=== PATIENT | female | born 1995 | race Caucasian/White ===

== ENCOUNTER 2019-01-14 21:04 | Inpatient (IN) | payer SELFPAY ==
[~2019-01-14] VITALS: Ht 157.5 cm; Wt 84.4 kg
[2019-01-14 22:25] VITALS: BP 118/71
--- NOTE | 2019-01-14 22:25 | NUR ---
The patient, BRUNO CHAPARRO, 23 y/o, F admitted by BRYAN ADRIAN MD, was given written information regarding hospital policies, unit procedures and contact persons. RN received report from Ema PARSONS at [place] @ 2117 and patient arrived on the floor at 2225. RN performed a head to toe assessment at that time, VSS, afebrile, and rating pain a 0/10. Bed is in lowest locked position, call light within reach, and patient was oriented to the room. Orders were received and implemented at that time. Valuables were checked and left in the room with patient. RN will continue to monitor patient closely.
[2019-01-14] MEDS ORDERED: ONDANSETRON PF 4 MG/2 ML VIAL. IV PRN (23:30)
[2019-01-15] VITALS (13 sets, daily range): BP systolic 91–117; BP diastolic 51–69
[2019-01-15] MEDS: IV NORMAL SALINE 1000ML BAG 1,000 ML IV SCH ×3 (00:21→18:19)
--- NOTE | 2019-01-15 08:19 | PDOC2 ---
GARRICK BROWN COMMISSIONER [employer] 01/15/19 0819: CONSULT Date of Consult Date of Consult DATE: 01/15/19 TIME: 08:10 Reason for Consult Reason for Consult: cholecystitis Referring Physician Referring Physician: Ajay ER Identification/Chief Complaint Chief Complaint abdominal pain Source Source: Chart review, Patient History of Present Illness Reason for Visit: 3 weeks of ongoing epigastric pain, sometimes pain radiates to back. Reports treated for UTI and GERD. Pain does seem to worsen after some meals. Nausea and emesis yesterday. She does report a few drinks on Monday. Occasional diarrhea Past Medical History Past Medical History Denies any medical hx Past Surgical History Past Surgical History: No pertinent history Family History Family History: Cancer (pancreatic ), Diabetes Social History No ALCOHOL: other (drinks moderately on weekends, socially) Current Medications Current Medications Current Medications Ondansetron HCl (Zofran) 4 mg PRN Q4HRS PRN IV NAUSEA/VOMITING 1ST CHOICE; Start 01/14/19 at 23:30 Sodium Chloride 1,000 ml @ 100 mls/hr Q10H IV Last administered on 01/15/19at 00:21; Start 01/14/19 at 23:30 Fentanyl Citrate (Fentanyl 2ml Vial) 50 mcg PRN Q3HRS PRN IV SEVERE PAIN 7-10; Start 01/14/19 at 23:30 Ceftriaxone Sodium (Rocephin) 1 gm Q24H IVP ; Start 01/15/19 at 18:00 Allergies Allergies: Coded Allergies: No Known Drug Allergies (Unverified , 01/14/19) ROS General: No: Chills, Other (fevers ) PSYCHOLOGICAL ROS: No: Anxiety, Depression Eyes: No Blurry vision, No Double vision HEENT: No: Heacaches, Sore Throat Hematological and Lymphatic: No: Bleeding Problems, Blood Clots Respiratory: No: Cough, Shortness of breath Cardiovascular: No Chest Pain, No Palpitations Gastrointestinal: Yes Other (see hpi) Genitourinary: No Dysuria, No Retention Musculoskeletal: No Joint Pain, No Muscle Pain Neurological: No Numbness/Tingling Skin: No Pruritus, No Rash Physical Exam General: Alert, Oriented X3, Cooperative, No acute distress HEENT: PERRLA, Mucous membr. moist/pink Lungs: Clear to auscultation, Normal air movement Heart: Regular rate, Normal S1, Normal S2, No murmurs Abdomen: Soft, No tenderness, Other (ND) Extremities: No clubbing, No cyanosis Skin: No rashes, No breakdown Neuro: Normal gait, Normal speech Psych/Mental Status: Mental status NL, Mood NL MUSCULOSKELETAL: No deformity, No swelling Vitals VITALS Vital Signs Date Time Temp Pulse Resp B/P (MAP) Pulse Ox O2 Delivery O2 Flow Rate FiO2 01/15/19 07:27 Room Air 01/15/19 03:00 98.4 63 18 99/53 (68) [address] IMPRESSION: 1. No evidence of periappendiceal inflammatory changes to suggest appendicitis. 2. Stones and sludge within the gallbladder. There is also some mild dilatation of the common bile duct. Would correlate with symptoms in the region and given the mild common bile duct dilation if further clarification is desired ultrasound and/or MRCP could BE obtained to ensure that there is not a biliary ductal stone. 3. Degenerative changes the spine with disc protrusion at L4-5 and L5-S1. 4. Lymphadenopathy at the right side of the abdomen. Commonly reactive in a patient of this age unless they have a history of neoplasm. If history or risk factors for neoplasm follow-up could be obtained to ensure that this does not increase in severity. Assessment/Plan Assessment/Plan abdominal pain, cholelithiasis elevated LFTS, t bili normal ongoing pain x 3 weeks will review with JUANA Stroud MD 01/15/19 1246: CONSULT Assessment/Plan Assessment/Plan Pt seen and examined by myself; 23 year old female reported to [facility] ER with upper abdominal pain radiating around the right to the back. She reports nausea, and has had pain for last few weeks. Evaluation suggested cholecystitis, and she was transferred to [facility]. PMH/PSH/ROS/SH as above; exam: alert, oriented, NAD, no neck masses, lungs clear, heart RR and R, abdomen soft, nontender, ext neg for edema; labs and xrays reviewed. A/P) RUQ pain, gallstones; recommend lap tamra. The details and risks were discussed with the patient. She understands and would like to proceed. GARRICK BROWN APRN Jan 15, 2019 08:19 JUANA BATES MD Jan 15, 2019 12:46
[2019-01-15] MEDS ORDERED: IV RINGERS,LACTATED 1000ML 1,000 ML IV SCH (09:06)
[2019-01-15] MEDS ORDERED: HYDROmorphone 2 MG/ML VIAL IV PRN (09:15)
[2019-01-15] MEDS ORDERED: PROCHLORPERAZINE 10 MG/2 ML VIAL. IV PRN (09:15)
[2019-01-15] MEDS ORDERED: fentaNYL PF VIAL 100 MCG/2 ML VIAL IV PRN ×2 (09:15)
[2019-01-15] MEDS ORDERED: MORPHINE SULFATE 2 MG/ML VIAL. IV PRN (09:15)
[2019-01-15] MEDS ORDERED: ONDANSETRON PF 4 MG/2 ML VIAL. IV PRN (09:15)
--- NOTE | 2019-01-15 10:08 | HP ---
ADMIT DATE: HISTORY OF PRESENT ILLNESS: The patient is a 23-year-old female patient who presented to the Emergency Room of [facility] with complaints of epigastric right upper quadrant abdominal pain and that the pain does occur after eating. She denied any trauma. Denied any intake of bad food. Denied any recent travel, placed on immunosuppression. She [facility]; however, the pain got really worse after eating some chicken rice and therefore she presented to the Emergency Room of [facility] where she was extensively evaluated and was found to have elevated liver enzymes as well as hyperbilirubinemia. Her CT scan of the abdomen and pelvis showed that the patient has stones and sludge within the gallbladder. There is also some mild dilatation of the common bile duct and therefore the patient was transferred to [facility] after consulting the surgical team for removing her gallbladder. PAST MEDICAL HISTORY: Unremarkable. PAST SURGICAL HISTORY: Unremarkable. ALLERGIES: She has no known drug allergies. MEDICATIONS: She is not on any medication. FAMILY HISTORY: Significant for the fact that her father in his mid-40s because of pancreatic cancer. SOCIAL HISTORY: She is not . She has 3 children. 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 She continued to smoke and drink alcohol. Denied any drugs. PHYSICAL EXAMINATION: GENERAL: On examining her, she looked well and was clearly in no apparent respiratory distress. No pallor, jaundice or cyanosis. No lymphadenopathy, no thyromegaly. No jugular venous distension. No lower limb edema. VITAL SIGNS: Her heart rate was 72, blood pressure 110/63, temperature was 98.2, respiratory rate was 20, and oxygen saturation was 99% on room air. HEAD, EYES, EARS, NOSE AND THROAT: Normocephalic, atraumatic. NECK: Supple. HEART: Showed normal first and second heart sounds with no gallop, rub or murmur. CHEST: Clear to auscultation. No crepitation or rhonchi. ABDOMEN: Distended, soft with tenderness mostly in epigastric and right upper quadrant. There is no guarding or rigidity. No organomegaly. All hernial orifices intact. Bowel sounds normal. NEUROLOGIC: She is grossly intact. LABORATORY DATA: Showed a white cell count 6100, hemoglobin 13, hematocrit 41, MCV 85 and platelet count 267,000 with normal manual differential. Her chemistry showed a serum sodium 143, potassium 4, chloride 105, bicarbonate 27, anion gap of 11, BUN 7, creatinine 0.6, estimated GFR was 125 mL per minute. Her glucose 115, calcium is 9.7. Total bilirubin 1.1, direct bilirubin 0.9. AST, ALT, alkaline phosphatase are all elevated. Her total protein was 7.2, albumin 4, and serum lipase was 163. Her serum test was negative. Prothrombin time, INR, and aPTT was normal. Urinalysis was unremarkable with small leukocyte esterase, no rbc's, 5-10 wbc's, and very few bacteria. Her toxic screen was essentially negative. Her CT scan of the abdomen showed that there is no evidence of periappendiceal inflammatory changes, ____. She has stones and sludge within the gallbladder. There is also some mild dilatation of the common bile duct, degenerative changes of spine with disk protrusion at L4-L5, L5-S1. She has lymphadenopathy in the right side of the abdomen, very active in the patient of this age unless they have a history of neoplasm. ASSESSMENT AND PLAN: The patient was admitted to [facility] to consult the surgical team. She is kept n.p.o., given IV fluid, IV pain medication and antiemetic and was also continued on IV ceftriaxone given that she has also UTI. BRYAN ADRIAN MD DR: VAL/lorenzo JOB#: [id number] / [id number]
--- NOTE | 2019-01-15 11:49 | NUR ---
pt left for surgery at 1145
[2019-01-15] MEDS ORDERED: BUPIVAC MPF-EPI 0.5%-1:200000 30 ML VIAL. ONE (11:54)
[2019-01-15] MEDS ORDERED: ROCURONIUM 50 MG/5 ML VIAL. ONE (11:55)
[2019-01-15] MEDS ORDERED: SURGICEL HEMOSTAT 4X8 EACH. ONE (11:55)
[2019-01-15] MEDS ORDERED: fentaNYL PF VIAL 100 MCG/2 ML VIAL ONE ×3 (11:55→15:41)
[2019-01-15] MEDS ORDERED: NEOSTIGMINE METHYLSULFATE 5 MG/5 ML SYRINGE. ONE (11:55)
[2019-01-15] MEDS ORDERED: IOHEXOL 300 MG/ML 50 ML VIAL. ONE (11:55)
[2019-01-15] MEDS ORDERED: KETOROLAC 30 MG/ML INJ FOR OR. INJ ONE (11:56)
[2019-01-15] MEDS ORDERED: MIDAZOLAM HCL/PF 2 MG/2 ML VIAL. ONE (11:56)
[2019-01-15] MEDS ORDERED: DEXAMETHASONE SOD PHOS 4 MG/ML VIAL ONE (11:56)
[2019-01-15] MEDS ORDERED: GLYCOPYRROLATE 1 MG/5 ML VIAL. ONE (11:56)
[2019-01-15] MEDS ORDERED: PROPOFOL 20 ML IV ONE (11:56)
[2019-01-15] MEDS ORDERED: ONDANSETRON PF 4 MG/2 ML VIAL. ONE (11:56)
[2019-01-15] MEDS ORDERED: LIDOCAINE 2% PF 5 ML VIAL. ONE (11:56)
[2019-01-15] MEDS ORDERED: ceFAZolin 2GM PREMIX 2 GM/50 ML BAG IV ONE (12:00)
[2019-01-15] MEDS ORDERED: PHENYLEPHRINE in 0.9% NACL PF 1 MG/10 ML SYRINGE. IV ONE (13:46)
--- NOTE | 2019-01-15 14:19 | RAD ---
Examination: CHOLANGIOGRAM INTRAOPERATIVE History: Intraoperative cholangiogram Comparison/Correlation: None Findings: Fluoroscopy was utilized for 0.37 minutes. 6 images were provided for interpretation. Cholecystectomy noted. There is no extravasation about the cystic duct remnant. Distended common duct is noted. Multiple filling defects in involving the common duct and hepatic ducts noted. No stricture identified. No focal destructive lesion. Impression: Distended common duct and visualized intrahepatic biliary tree. No stricture evident. Multiple filling defects are present may likely representing gas. Correlate clinically. Electronically signed by: Khanh Haney MD (01/15/2019 2:16 PM) [id number]
[2019-01-15] MEDS: fentaNYL PF VIAL 100 MCG/2 ML VIAL IV PRN ×5 (14:54→21:33)
[2019-01-15] MEDS ORDERED: PROCHLORPERAZINE 10 MG/2 ML VIAL. ONE (14:58)
--- NOTE | 2019-01-15 15:26 | PDOC2 ---
GI CONSULT Reason For Consult: Abnormal IOC HPI: HPI: 23 y/o female transferred to [facility] from [facility]. Reviewed chart - post-prandial upper abd pain for a few weeks, pain radiates to back, associated w/ nausea. Labs at [facility]: normal WBC and Hgb, bili 1.1 (direct 0.9), AST 398, ALT 700, Alk Phos 387, normal lipase, normal BUN and Cr. On CT: stones and sludge within the gallbladder, mild dilatation for CBD (7- 8mm), mild prominence of right extrarenal pelvis and ureter, mildly prominent spleen, lymphadenopathy on right side of abdomen, disc protrusions at L4-5 and L5-S1. Now s/p cholecystectomy - op report pending. IOC notes distended common duct and visualized intrahepatic biliary tree, no stricture, and multiple filling defects likely representing gas. D/w Anne/surgery - asked to see for possible ERCP. een in PACU, still drowsy - d/w nurse, just received Fentanyl and Compazine. PMH: PMH: per chart - UTI FH: Family History: Cancer (father - pancreatic) Social History: Smoke: No ALCOHOL: social ROS: Per HPI. Vitals: Vitals: Vital Signs Date Time Temp Pulse Resp B/P (MAP) Pulse Ox O2 Delivery O2 Flow Rate FiO2 01/15/19 15:10 98.0 60 13 102/51 100 Simple Mask 5.0 98.0 Labs: Labs: Per HPI. Allergies: Coded Allergies: No Known Drug Allergies (Unverified , 01/14/19) Medications: Current Medications Medications (Trade) Dose Ordered Sig/Abhishek Route PRN Reason Start Time Stop Time Status Last Admin Dose Admin Sodium Chloride 1,000 ml @ 100 mls/hr Q10H IV 01/14/19 23:30 01/15/19 08:10 Fentanyl Citrate (Fentanyl 2ml Vial) 50 mcg PRN Q3HRS PRN IV SEVERE PAIN 7-01/14/19 23:30 01/15/19 15:08 Prochlorperazine Edisylate (Compazine) 5 mg PACU PRN PRN IV NAUSEA, MRX1 01/15/19 09:15 01/16/19 09:14 01/15/19 15:00 Imaging: Imaging: IOC 01/15/19 Impression: Distended common duct and visualized intrahepatic biliary tree. No stricture evident. Multiple filling defects are present may likely representing gas. Correlate clinically. PE: GEN: NAD HEENT: Atraumatic, PERRL LUNGS: breathing mask HEART: RRR ABD: quiet, soft, dressings/drain EXTREMITY: No edema SKIN: No rashes, no jaundice NEURO/PSYCH: drowsy, awakens to name A/P: A/P: S/p cholecystectomy, abnormal IOC, dilated CBD Abnormal LFTs -- Will review w/ Dr. Ye and discuss further when she's more awake. Recheck labs in JOSELUIS Paul Jan 15, 2019 15:26
--- NOTE | 2019-01-15 16:22 | PDOC4 ---
Operative Note Operative Note Operative Note: Preoperative Diagnosis: Calculus cholecystitis Postoperative Diagnosis: Same, suspect choledocholithiasis Procedure: Laparoscopic cholecystectomy with intraoperative cholangiogram Surgeons: Medardo Anesthesia: Gen. Estimated Blood Loss: 10 mL Specimen: Gallbladder to pathology Drains: None Complications: None Indications: The patient is a 23-year-old female who is admitted due to abdominal pain. Her evaluation is consistent with calculus cholecystitis. Surgical treatment was offered by means of a laparoscopic cholecystectomy. The risks of surgery were discussed which include bleeding, infection, bile duct injury, bile leak, pain, the potential for additional surgeries or procedures. The patient understands and would like to proceed. Description: The patient was taken to the operating room and laid supine on the operating table. General anesthesia was performed. The abdomen was prepped with ChloraPrep and draped in a standard surgical fashion. A small infraumbilical incision was made with a scalpel. The Veress needle was then ins erted and a pneumoperitoneum was then created. A 5 mm trocar was then inserted and the laparoscope was introduced. In the upper midabdomen a 5 mm trocar was inserted and in the right upper quadrant two 2.3 mm mini lap graspers were inserted. The gallbladder was retracted cephalad. The cystic duct was dissected free from surrounding tissues. One clip was placed on the duct near the gallbladder junction. An opening was made in the duct and a cholangiocatheter placed within and secured with a clip. Using contrast dye and fluoroscopy an intraoperative cholangiogram was performed. Preliminary evaluation seemed to show multiple filling defects with some dilation in the common duct. These defect seen most consistent with common duct stones. Some contrast did pass into the duodenum however there was a filling defect in the distal duct as well consistent with a stone The clip and catheter were then withdrawn. Three clips were placed on the cystic duct and it was divided. The cystic artery was then identified, dissected free, doubly clipped and divided as well. The gallbladder was then mobilized away from the liver with cautery. The umbilical 5 millimeter trocar was exchanged for an 11 millimeter trocar, and a 2.3 mm mini lap grasper was exchanged for a 5 mm trocar. A 19 Occ[place] round [place] drain was placed in the gallbladder fossa with an exit site in the right lateral 5 mm port. This was secured to the skin with 2-0 silk. The gallbladder was then placed in an endoscopic bag and extracted at the umbilical trocar site. The fascia there was closed with an 0 Vicryl suture. All blood and irrigation fluid was suctioned and hemostasis was good. The remaining ports were removed and the pneumoperitoneum was relieved. The skin incisions were injected with half p ercent Marcaine with epinephrine, and all were closed using 4-0 Monocryl suture. Steri-Strips and dressings were then applied. The patient tolerated the procedure well and was sent to the recovery room in stable condition. At the end of the case all counts were correct. JUANA BATES MD Jan 15, 2019 16:22
[2019-01-15] MEDS: cefTRIAXone IV Push 1 GM VIAL. IVP SCH (18:20)
--- NOTE | 2019-01-15 18:31 | NUR ---
pt returned to unit at 1552 in stable condition. pt is on 2LNC and oriented but drowsy. pt is rating her pain 4/10 at this time. pt has family at bedside and call light within reach. received report from JAQUELINE Renteria in PACU. will continue to monitor.
[2019-01-16] MEDS: fentaNYL PF VIAL 100 MCG/2 ML VIAL IV PRN ×6 (00:43→20:43)
--- NOTE | 2019-01-16 01:56 | PN ---
DATE: 01/15/2019 SUBJECTIVE: The patient is a 23-year-old female patient, who was seen yesterday at the Emergency Room of [facility] with epigastric and right quadrant pain. She was found to have stones and sludge in her gallbladder with slight dilated common bile duct, with markedly elevated liver enzymes and therefore, the patient was transferred to [facility] with acute cholecystitis and choledocholithiasis. She was kept n.p.o., started on IV fluids, IV pain medications. She has also UTI, for which she was continued on Rocephin. PHYSICAL EXAMINATION: GENERAL: When I saw her this morning, she looked well and was clearly in no apparent respiratory distress and no pallor, jaundice, cyanosis, or thyromegaly. No jugular venous distension. No limb edema. VITAL SIGNS: Her heart rate was 68, blood pressure was 107/69, her oxygen saturation was 95%. HEAD, EYES, EARS, NOSE, AND THROAT: Normocephalic, atraumatic. NECK: Supple. HEART: Showed normal first and second heart sounds. No gallop, rub, or murmur. CHEST: Clear to auscultation. No crepitation or rhonchi. ABDOMEN: Distended, soft with tenderness mostly in the epigastric and right upper quadrant. NEUROLOGIC: She is grossly intact. ASSESSMENT: Acute cholecystitis and choledocholithiasis, as well as urinary tract infection. Continue with IV fluid. Continue with pain management, antiemetic, as well as IV antibiotic. Await evaluation by the surgical team. BRYAN ADRIAN MD DR: VAL/lorenzo JOB#: [id number] / [id number]
[2019-01-16 02:59] VITALS: BP 97/53
[2019-01-16 04:39] LABS: HEMATOCRIT 35.7 % (36.0-47.0); HEMOGLOBIN 11.8 g/dL (12.0-15.5); RED BLOOD COUNT 4.26 x10^6/uL (3.50-5.40); RED CELL DISTRIBUTION WIDTH 14.6 % (11.5-14.5); WHITE BLOOD COUNT 8.3 x10^3/uL (4.0-11.0)
[2019-01-16 05:17] LABS: ALBUMIN 3.1 g/dL (3.4-5.0); CALCIUM 8.2 mg/dL (8.5-10.1); CREATININE 0.5 mg/dL (0.6-1.0); GFR 154.3; POTASSIUM 3.7 mmol/L (3.5-5.1); TOTAL BILIRUBIN 0.4 mg/dL (0.2-1.0); TOTAL PROTEIN 6.2 g/dL (6.4-8.2)
[2019-01-16] MEDS: IV NORMAL SALINE 1000ML BAG 1,000 ML IV SCH ×2 (05:24→15:42)
[2019-01-16 07:00] VITALS: BP 114/66
--- NOTE | 2019-01-16 09:06 | PDOC ---
Subjective: Subjective: Had some clears last night, nothing this morning. Some abd pain - better than before surgery and mostly w/ movement. Passing gas. Objective: Objective: D/w Dr. Batres - many small stone throughout the ducts, one near ampulla - not air bubbles. Vital Signs: Vital Signs Date Time Temp Pulse Resp B/P (MAP) Pulse Ox O2 Delivery O2 Flow Rate FiO2 01/16/19 07:45 Room Air 01/16/19 07:00 98.2 76 17 114/66 (82) 99 98.2 01/16/19 01:13 1.0 Labs: Laboratory Tests Test 01/16/19 03:30 01/16/19 03:35 White Blood Count 8.3 x10^3/uL Red Blood Count 4.26 x10^6/uL Hemoglobin 11.8 g/dL Hematocrit 35.7 % Mean Corpuscular Volume 84 fL Mean Corpuscular Hemoglobin 28 pg Mean Corpuscular Hemoglobin Concent 33 g/dL Red Cell Distribution Width 14.6 % Platelet Count 238 x10^3/uL Sodium Level 141 mmol/L Potassium Level 3.7 mmol/L Chloride Level 106 mmol/L Carbon Dioxide Level 23 mmol/L Anion Gap 12 Blood Urea Nitrogen 4 mg/dL Creatinine 0.5 mg/dL Estimated GFR (Cockcroft-Gault) 154.3 BUN/Creatinine Ratio 8 Glucose Level 88 mg/dL Calcium Level 8.2 mg/dL Total Bilirubin 0.4 mg/dL Aspartate Amino Transf (AST/SGOT) 82 U/L Alanine Aminotransferase (ALT/SGPT) 455 U/L Alkaline Phosphatase 259 U/L Total Protein 6.2 g/dL Albumin 3.1 g/dL Albumin/Globulin Ratio 1.0 PE: GEN: NAD LUNGS: CTAB HEART: RRR ABD: quiet BS, soft, mildly tender around drain NEURO/PSYCH: A & O �3 A/P: Calculous cholecystitis - s/p cholecystectomy w/ abnormal IOC and dilated CBD Abnormal LFTs - better -- Reviewed w/ Dr. Ye - will plan for ERCP tomorrow. Clears okay for today. JOSELUIS JOHNSON Jan 16, 2019 09:06
--- NOTE | 2019-01-16 09:32 | NUR ---
SS following for discharge planning. SS reviewed pt chart. Pt is self pay pt. HCFS following for self pay status. Pt is from home and is currently on room air. No discharge needs noted at this time. SS will continue to follow for discharge planning.
[2019-01-16 11:00] VITALS: BP 107/69
--- NOTE | 2019-01-16 12:41 | PDOC ---
PROGRESS NOTES Subjective Subjective sore, but ok Objective Objective Vital Signs Date Time Temp Pulse Resp B/P (MAP) Pulse Ox O2 Delivery O2 Flow Rate FiO2 01/16/19 11:00 97.8 72 17 107/69 (82) 99 Room Air 97.8 01/16/19 01:13 1.0 Intake and Output 01/16/19 06:59 Intake Total 2080 ml Output Total 350 ml Balance 1730 ml Intake Oral 480 ml IV Total 1600 ml Output Urine Total 340 ml Estimated Blood Loss 10 ml # Voids 3 Physical Exam Abdomen: Soft (MAEGAN serosang) Assessment Assessment S/P lap tamra, grams with many filling defects Plan Plan of Care ERCP tomorrow, appreciated GI assistance Comment Review of Relevant I have reviewed the following items sammy (where applicable) has been applied. Labs Laboratory Tests Test 01/16/19 03:30 01/16/19 03:35 White Blood Count 8.3 x10^3/uL (4.0-11.0) Red Blood Count 4.26 x10^6/uL (3.50-5.40) Hemoglobin 11.8 g/dL (12.0-15.5) Hematocrit 35.7 % (36.0-47.0) Mean Corpuscular Volume 84 fL (79-100) Mean Corpuscular Hemoglobin 28 pg (25-35) Mean Corpuscular Hemoglobin Concent 33 g/dL (31-37) Red Cell Distribution Width 14.6 % (11.5-14.5) Platelet Count 238 x10^3/uL (140-400) Sodium Level 141 mmol/L (136-145) Potassium Level 3.7 mmol/L (3.5-5.1) Chloride Level 106 mmol/L (98-107) Carbon Dioxide Level 23 mmol/L (21-32) Anion Gap 12 (6-14) Blood Urea Nitrogen 4 mg/dL (7-20) Creatinine 0.5 mg/dL (0.6-1.0) Estimated GFR (Cockcroft-Gault) 154.3 BUN/Creatinine Ratio 8 (6-20) Glucose Level 88 mg/dL (70-99) Calcium Level 8.2 mg/dL (8.5-10.1) Total Bilirubin 0.4 mg/dL (0.2-1.0) Aspartate Amino Transf (AST/SGOT) 82 U/L (15-37) Alanine Aminotransferase (ALT/SGPT) 455 U/L (14-59) Alkaline Phosphatase 259 U/L (46-116) Total Protein 6.2 g/dL (6.4-8.2) Albumin 3.1 g/dL (3.4-5.0) Albumin/Globulin Ratio 1.0 (1.0-1.7) Laboratory Tests Test 01/16/19 03:30 01/16/19 03:35 White Blood Count 8.3 x10^3/uL (4.0-11.0) Red Blood Count 4.26 x10^6/uL (3.50-5.40) Hemoglobin 11.8 g/dL (12.0-15.5) Hematocrit 35.7 % (36.0-47.0) Mean Corpuscular Volume 84 fL (79-100) Mean Corpuscular Hemoglobin 28 pg (25-35) Mean Corpuscular Hemoglobin Concent 33 g/dL (31-37) Red Cell Distribution Width 14.6 % (11.5-14.5) Platelet Count 238 x10^3/uL (140-400) Sodium Level 141 mmol/L (136-145) Potassium Level 3.7 mmol/L (3.5-5.1) Chloride Level 106 mmol/L (98-107) Carbon Dioxide Level 23 mmol/L (21-32) Anion Gap 12 (6-14) Blood Urea Nitrogen 4 mg/dL (7-20) Creatinine 0.5 mg/dL (0.6-1.0) Estimated GFR (Cockcroft-Gault) 154.3 BUN/Creatinine Ratio 8 (6-20) Glucose Level 88 mg/dL (70-99) Calcium Level 8.2 mg/dL (8.5-10.1) Total Bilirubin 0.4 mg/dL (0.2-1.0) Aspartate Amino Transf (AST/SGOT) 82 U/L (15-37) Alanine Aminotransferase (ALT/SGPT) 455 U/L (14-59) Alkaline Phosphatase 259 U/L (46-116) Total Protein 6.2 g/dL (6.4-8.2) Albumin 3.1 g/dL (3.4-5.0) Albumin/Globulin Ratio 1.0 (1.0-1.7) Medications Current Medications Ondansetron HCl (Zofran) 4 mg PRN Q4HRS PRN IV NAUSEA/VOMITING 1ST CHOICE; Start 01/14/19 at 23:30 Sodium Chloride 1,000 ml @ 100 mls/hr Q10H IV Last administered on 01/16/19at 05:24; Start 01/14/19 at 23:30 Fentanyl Citrate (Fentanyl 2ml Vial) 50 mcg PRN Q3HRS PRN IV SEVERE PAIN 7-10 Last administered on 01/16/19at 10:19; Start 01/14/19 at 23:30 Ceftriaxone Sodium (Rocephin) 1 gm Q24H IVP Last administered on 01/15/19at 18:20; Start 01/15/19 at 18:00 Cefazolin Sodium/ Dextrose 50 ml @ 100 mls/hr 1X PREOP PRN IV application helper to OR; Start 01/15/19 at 08:45; Stop 01/16/19 at 18:00 Ondansetron HCl (Zofran) 4 mg PRN Q6HRS PRN IV NAUSEA/VOMITING; Start 01/15/19 at 09:15; Stop 01/16/19 at 09:14; Status DC Fentanyl Citrate (Fentanyl 2ml Vial) 25 mcg PRN Q5MIN PRN IV MILD PAIN 1-3; Start 01/15/19 at 09:15; Stop 01/16/19 at 09:14; Status DC Fentanyl Citrate (Fentanyl 2ml Vial) 50 mcg PRN Q5MIN PRN IV MODERATE TO SEVERE PAIN; Start 01/15/19 at 09:15; Stop 01/16/19 at 09:14; Status DC Morphine Sulfate (Morphine Sulfate) 1 mg PRN Q10MIN PRN IV SEVERE PAIN 7-10; Start 01/15/19 at 09:15; Stop 01/16/19 at 09:14; Status DC Ringer's Solution 1,000 ml @ 30 mls/hr Q24H IV ; Start 01/15/19 at 09:06; Stop 01/15/19 at 21:05; Status DC Hydromorphone HCl (Dilaudid) 0.5 mg PRN Q10MIN PRN IV SEV PAIN, Second choice; Start 01/15/19 at 09:15; Stop 01/16/19 at 09:14; Status DC Prochlorperazine Edisylate (Compazine) 5 mg PACU PRN PRN IV NAUSEA, MRX1 Last administered on 01/15/19at 15:00; Start 01/15/19 at 09:15; Stop 01/16/19 at 09:14; Status DC Rocuronium Garner (Zemuron) 50 mg STK-MED ONCE .ROUTE ; Start 01/15/19 at 11:55; Stop 01/15/19 at 11:56; Status DC Fentanyl Citrate (Fentanyl 2ml Vial) 100 mcg STK-MED ONCE .ROUTE ; Start 01/15/19 at 11:55; Stop 01/15/19 at 11:56; Status DC Neostigmine Methylsulfate (Neostigmine Methylsulfate) 5 mg STK-MED ONCE .ROUTE ; Start 01/15/19 at 11:55; Stop 01/15/19 at 11:56; Status DC Midazolam HCl (Versed) 2 mg STK-MED ONCE .ROUTE ; Start 01/15/19 at 11:56; Stop 01/15/19 at 11:57; Status DC Glycopyrrolate (Robinul) 1 mg STK-MED ONCE .ROUTE ; Start 01/15/19 at 11:56; Stop 01/15/19 at 11:57; Status DC Propofol 20 ml @ As Directed STK-MED ONCE IV ; Start 01/15/19 at 11:56; Stop 01/15/19 at 11:57; Status DC Lidocaine HCl (Lidocaine Pf 2% Vial) 5 ml STK-MED ONCE .ROUTE ; Start 01/15/19 at 11:56; Stop 01/15/19 at 11:57; Status DC Ketorolac Tromethamine (Toradol For Or Only) 30 mg STK-MED ONCE INJ ; Start 01/15/19 at 11:56; Stop 01/15/19 at 11:57; Status DC Dexamethasone Sodium Phosphate (Decadron) 4 mg STK-MED ONCE .ROUTE ; Start 01/15/19 at 11:56; Stop 01/15/19 at 11:57; Status DC Ondansetron HCl (Zofran) 4 mg STK-MED ONCE .ROUTE ; Start 01/15/19 at 11:56; Stop 01/15/19 at 11:57; Status DC Bupivacaine HCl/ Epinephrine Bitart (Sensorcain-Mpf Epi 0.5%-1:[id number]) 30 ml STK-MED ONCE .ROUTE Last administered on 01/15/19at 13:48; Start 01/15/19 at 11:54; Stop 01/15/19 at 12:55; Status DC Iohexol (Omnipaque 300 Mg/ml) 50 ml STK-MED ONCE .ROUTE Last administered on 01/15/19at 14:02; Start 01/15/19 at 11:55; Stop 01/15/19 at 12:55; Status DC Cellulose (Surgicel Hemostat 4x8) 1 each STK-MED ONCE .ROUTE ; Start 01/15/19 at 11:55; Stop 01/15/19 at 12:55; Status DC Phenylephrine HCl (PHENYLEPHRINE in 0.9% NACL PF) 1 mg STK-MED ONCE IV ; Start 01/15/19 at 13:46; Stop 01/15/19 at 13:47; Status DC Fentanyl Citrate (Fentanyl 2ml Vial) 100 mcg STK-MED ONCE .ROUTE ; Start 01/15/19 at 14:52; Stop 01/15/19 at 14:53; Status DC Prochlorperazine Edisylate (Compazine) 10 mg STK-MED ONCE .ROUTE ; Start 01/15/19 at 14:58; Stop 01/15/19 at 14:59; Status DC Fentanyl Citrate (Fentanyl 2ml Vial) 100 mcg STK-MED ONCE .ROUTE ; Start 01/15/19 at 15:41; Stop 01/15/19 at 15:42; Status DC Cefazolin Sodium/ Dextrose (Ancef 2gm Premix) 2 gm STK-MED ONCE IV ; Start 01/15/19 at 12:00; Stop 01/16/19 at 12:11; Status DC Vitals/I & O Vital Sign - Last 24 Hours 01/15/19 01/15/19 01/15/19 01/15/19 14:39 14:39 14:54 14:55 Temp 98 98.0 98.0 98.0 Pulse 78 64 Resp 16 14 14 B/P (MAP) 114/62 111/59 Pulse Ox 100 100 100 O2 Delivery Mask Simple Mask Simple Mask Simple Mask O2 Flow Rate 8 8 8.0 8.0 01/15/19 01/15/19 01/15/19 01/15/19 15:08 15:10 15:25 15:40 Temp 98.0 98.0 98.0 98.0 98.0 98.0 Pulse 60 58 66 Resp 15 13 16 15 B/P (MAP) 102/51 100/55 108/65 Pulse Ox 100 100 100 99 O2 Delivery Simple Mask Simple Mask Nasal Cannula Nasal Cannula Simple Mask Simple Mask O2 Flow Rate 5.0 5.0 2 2 01/15/19 01/15/19 01/15/19 01/15/19 15:45 15:51 16:04 16:18 Pulse 74 59 70 Resp 12 B/P (MAP) 108/62 (77) 106/62 (77) 101/59 (73) Pulse Ox 99 97 97 98 O2 Delivery Nasal Cannula Nasal Cannula Nasal Cannula Nasal Cannula O2 Flow Rate 2.0 1.0 1.0 1.0 01/15/19 01/15/19 01/15/19 01/15/19 16:33 16:48 17:19 17:48 Pulse 57 71 62 62 B/P (MAP) 99/60 (73) 117/69 (85) 111/63 (79) 103/63 (76) Pulse Ox 99 100 100 100 O2 Delivery Nasal Cannula Nasal Cannula Nasal Cannula Room Air O2 Flow Rate 1.0 1.0 1.0 01/15/19 01/15/19 01/15/19 01/15/19 18:18 18:27 19:15 20:00 Temp 97.7 97.7 Pulse 63 80 Resp 16 B/P (MAP) 108/65 (79) 95/51 (66) Pulse Ox 96 99 O2 Delivery Room Air Room Air Room Air Mask O2 Flow Rate 1.0 01/15/19 01/15/19 01/16/19 01/16/19 21:33 22:57 00:43 01:13 Temp 97.9 97.9 Pulse 63 Resp 18 B/P (MAP) 91/55 (67) Pulse Ox 99 98 98 98 O2 Delivery Simple Mask Room Air O2 Flow Rate 1.0 1.0 1.0 01/16/19 01/16/19 01/16/19 01/16/19 02:59 07:00 07:14 07:24 Temp 98.0 98.2 98.0 98.2 Pulse 75 76 Resp 18 17 B/P (MAP) 97/53 (68) 114/66 (82) Pulse Ox 100 99 O2 Delivery Room Air Room Air Room Air Room Air 01/16/19 01/16/19 01/16/19 10:19 10:50 11:00 Temp 97.8 97.8 Pulse 72 Resp 17 B/P (MAP) 107/69 (82) Pulse Ox 99 O2 Delivery Room Air Room Air Room Air Intake and Output 01/15/19 01/15/19 01/16/19 14:59 22:59 06:59 Intake Total 1600 ml 360 ml 120 ml Output Total 10 ml 340 ml Balance 1590 ml 20 ml 120 ml JUANA BATES MD Jan 16, 2019 12:41
[2019-01-16 15:00] VITALS: BP 96/49
[2019-01-16] MEDS: cefTRIAXone IV Push 1 GM VIAL. IVP SCH (17:55)
[2019-01-16 19:00] VITALS: BP 91/56
[2019-01-16 23:00] VITALS: BP 94/57
[2019-01-17] VITALS (13 sets, daily range): BP systolic 98–117; BP diastolic 59–82
[2019-01-17] MEDS: fentaNYL PF VIAL 100 MCG/2 ML VIAL IV PRN ×6 (00:38→23:13)
[2019-01-17] MEDS: IV NORMAL SALINE 1000ML BAG 1,000 ML IV SCH ×2 (00:39→09:47)
--- NOTE | 2019-01-17 03:28 | PN ---
DATE: SUBJECTIVE: The patient is resting, slightly propped up in bed, in no apparent respiratory distress. She is awake, alert. Denied any nausea or vomiting, denied any abdominal pain. She underwent laparoscopic cholecystectomy with intraoperative cholangiogram and apparently scheduled for ERCP, as apparently she has many small stones throughout the ducts, one near the ampulla. No air bubbles. She is scheduled for ERCP tomorrow. She is allowed to have clear liquids today. PHYSICAL EXAMINATION: GENERAL: When I saw her this morning, she looked well and was clearly in no apparent respiratory distress. No pallor, jaundice, cyanosis or thyromegaly. No jugular venous distension. No limb edema. VITAL SIGNS: Her heart rate was 76, blood pressure was 114/66, temperature was 98.2, respiratory rate was 17, and oxygen saturation was 99%. HEAD, EYES, EARS, NOSE AND THROAT: Normocephalic, atraumatic. NECK: Supple. HEART: Showed normal first and second heart sounds with no gallop, rub or murmur. CHEST: Clear to auscultation. No crepitation or rhonchi. ABDOMEN: Distended, soft. There is tenderness mostly in the right upper quadrant. No guarding or rigidity. No organomegaly. All hernial orifices intact. Bowel sounds normal. NEUROLOGIC: She was awake, alert, responding appropriately. All cranial nerves intact. She moves extremities without difficulty. Her intake was 2100, output was 350. LABORATORY DATA: Showed a serum sodium 141, potassium 3.7, chloride 106, bicarbonate 23, anion gap of 12, BUN 4, creatinine 0.5. Estimated GFR was 154 mL per minute. Her glucose 88, calcium was 8.2. Total bilirubin 0.4. AST, ALT, alkaline phosphatase are all elevated. Total protein was 6.2, albumin 3.1. White cell count was 8300, hemoglobin 11.6, hematocrit 35.7, MCV 84, and platelet count of 238,000. ASSESSMENT: Acute cholecystitis, status post laparoscopic cholecystectomy with abnormal intraoperative cholangiogram and dilated common bile duct, multiple stones in the common bile duct. Abnormal liver enzymes are improving. The patient is scheduled for ERCP tomorrow to retrieve the stones in the common bile duct. BRYAN ADRIAN MD DR: VAL/lorenzo JOB#: [id number] / [id number]
[2019-01-17] MEDS ORDERED: IV RINGERS,LACTATED 1000ML 1,000 ML IV SCH ×2 (07:00→11:58)
[2019-01-17 08:22] LABS: HEMATOCRIT 32.9 % (36.0-47.0); HEMOGLOBIN 10.8 g/dL (12.0-15.5); RED BLOOD COUNT 3.93 x10^6/uL (3.50-5.40); RED CELL DISTRIBUTION WIDTH 14.5 % (11.5-14.5); WHITE BLOOD COUNT 4.7 x10^3/uL (4.0-11.0)
[2019-01-17 08:31] LABS: PROTHROMBIN TIME PATIENT 14.7 SEC (11.7-14.0)
--- NOTE | 2019-01-17 08:42 | PDOC ---
GARRICK BROWN PALEOBOTANIST 01/17/19 0841: SURGICAL PROGRESS NOTE Subjective pain managed no n/v Vital Signs Vital Signs Date Time Temp Pulse Resp B/P (MAP) Pulse Ox O2 Delivery O2 Flow Rate FiO2 01/17/19 07:09 98.2 67 18 99/59 (72) 97 Room Air 98.2 I&O Intake and Output 01/17/19 06:59 Intake Total 1510 ml Output Total 50 ml Balance 1460 ml Intake Oral 510 ml IV Total 1000 ml Stool Total 0 ml Drainage Total 50 ml General: Alert, Oriented X3, Cooperative, No acute distress Abdomen: Soft, Other (kelby serous) Labs Laboratory Tests Test 01/16/19 03:30 01/16/19 03:35 01/17/19 06:46 White Blood Count 8.3 x10^3/uL (4.0-11.0) 4.7 x10^3/uL (4.0-11.0) Red Blood Count 4.26 x10^6/uL (3.50-5.40) 3.93 x10^6/uL (3.50-5.40) Hemoglobin 11.8 g/dL (12.0-15.5) 10.8 g/dL (12.0-15.5) Hematocrit 35.7 % (36.0-47.0) 32.9 % (36.0-47.0) Mean Corpuscular Volume 84 fL (79-100) 84 fL (79-100) Mean Corpuscular Hemoglobin 28 pg (25-35) 27 pg (25-35) Mean Corpuscular Hemoglobin Concent 33 g/dL (31-37) 33 g/dL (31-37) Red Cell Distribution Width 14.6 % (11.5-14.5) 14.5 % (11.5-14.5) Platelet Count 238 x10^3/uL (140-400) 203 x10^3/uL (140-400) Sodium Level 141 mmol/L (136-145) Potassium Level 3.7 mmol/L (3.5-5.1) Chloride Level 106 mmol/L (98-107) Carbon Dioxide Level 23 mmol/L (21-32) Anion Gap 12 (6-14) Blood Urea Nitrogen 4 mg/dL (7-20) Creatinine 0.5 mg/dL (0.6-1.0) Estimated GFR (Cockcroft-Gault) 154.3 BUN/Creatinine Ratio 8 (6-20) Glucose Level 88 mg/dL (70-99) Calcium Level 8.2 mg/dL (8.5-10.1) Total Bilirubin 0.4 mg/dL (0.2-1.0) Aspartate Amino Transf (AST/SGOT) 82 U/L (15-37) Alanine Aminotransferase (ALT/SGPT) 455 U/L (14-59) Alkaline Phosphatase 259 U/L (46-116) Total Protein 6.2 g/dL (6.4-8.2) Albumin 3.1 g/dL (3.4-5.0) Albumin/Globulin Ratio 1.0 (1.0-1.7) Prothrombin Time 14.7 SEC (11.7-14.0) Prothromb Time International Ratio 1.2 (0.8-1.1) Laboratory Tests Test 01/17/19 06:46 White Blood Count 4.7 x10^3/uL (4.0-11.0) Red Blood Count 3.93 x10^6/uL (3.50-5.40) Hemoglobin 10.8 g/dL (12.0-15.5) Hematocrit 32.9 % (36.0-47.0) Mean Corpuscular Volume 84 fL (79-100) Mean Corpuscular Hemoglobin 27 pg (25-35) Mean Corpuscular Hemoglobin Concent 33 g/dL (31-37) Red Cell Distribution Width 14.5 % (11.5-14.5) Platelet Count 203 x10^3/uL (140-400) Prothrombin Time 14.7 SEC (11.7-14.0) Prothromb Time International Ratio 1.2 (0.8-1.1) Assessment/Plan s/p tamra ERCP today JUANA BATES MD 01/17/19 1146: SURGICAL PROGRESS NOTE Assessment/Plan Agree with above GARRICK BROWN APRN Jan 17, 2019 08:41 JUANA BATES MD Jan 17, 2019 11:46
[2019-01-17 08:43] LABS: ALBUMIN 2.9 g/dL (3.4-5.0); CREATININE 0.5 mg/dL (0.6-1.0); GFR 154.3; POTASSIUM 3.3 mmol/L (3.5-5.1); TOTAL BILIRUBIN 0.4 mg/dL (0.2-1.0); TOTAL PROTEIN 5.8 g/dL (6.4-8.2)
[2019-01-17] MEDS: POTASSIUM CL 40MEQ IN 0.9%NACL 1,000 ML IV SCH ×2 (10:25→20:30)
[2019-01-17] MEDS ORDERED: fentaNYL PF VIAL 100 MCG/2 ML VIAL IV PRN ×2 (12:00)
[2019-01-17] MEDS ORDERED: LIDOCAINE 1% PF 2 ML VIAL. ID PRN (12:00)
[2019-01-17] MEDS ORDERED: MIDAZOLAM HCL/PF 2 MG/2 ML VIAL. IV PRN (12:00)
[2019-01-17] MEDS ORDERED: PROPOFOL 20 ML IV ONE (12:09)
[2019-01-17] MEDS ORDERED: ROCURONIUM 50 MG/5 ML VIAL. ONE (12:12)
--- NOTE | 2019-01-17 12:23 | PN ---
DATE: 01/17/2019 SUBJECTIVE: The patient is resting, slightly propped up in bed, in no apparent distress. Denied any nausea or vomiting. Denied any abdominal pain. Her lab work showed she has mild hypokalemia with potassium of 3.3. She is apparently scheduled for ERCP sometime this afternoon. PHYSICAL EXAMINATION: GENERAL: When I examined her, she looked well and was clearly in no apparent respiratory distress. No pallor, jaundice, cyanosis, or thyromegaly. No jugular venous distension. No lower limb edema. VITAL SIGNS: Her heart rate was 67, blood pressure was 99/59, temperature was 98.2, respiratory rate was 18 and oxygen saturation was 97%. She continued to have MAEGAN drain; however, there is no guarding or rigidity and no organomegaly. Her intake over the last 24 hours was 2100, output was 350. LABORATORY DATA: Her lab work this morning showed a serum sodium 142, potassium 3.3, chloride 106, bicarbonate 25, anion gap of 11, BUN 3, creatinine 0.5. Her estimated GFR was 154 mL per minute. Her glucose was 87, calcium was 8. Total bilirubin is normal; however, AST, ALT, alkaline phosphatase are still elevated, though trending down. Her total protein was 5.8, albumin was 2.9. Her white cell count was 4700, hemoglobin 11, hematocrit 33, MCV 84 and platelet count 23,000. ASSESSMENT AND PLAN: 1. Acute cholecystitis, status post laparoscopic cholecystectomy with abnormal intraoperative cholangiogram, dilated common bile duct. Apparently, there are multiple stones in the common bile duct. 2. Abnormal liver enzymes are improving. The patient is scheduled for ERCP today. 3. Hypokalemia, for which we will change IV fluid to normal saline with 40 mEq of potassium chloride IV at 100 mL per hour. We will repeat all her lab works tomorrow, and if all is well she can be discharged home. BRYAN ADRIAN MD DR: VAL/lorenzo JOB#: [id number] / [id number]
[2019-01-17] MEDS ORDERED: IOHEXOL 300 MG/ML 100ML VIAL. ONE (12:32)
[2019-01-17] MEDS ORDERED: IOHEXOL 300 MG/ML 100ML VIAL. IV ONE (13:05)
--- NOTE | 2019-01-17 13:27 | PDOC4 ---
Operative Note Operative Note ERCP with sphincterotomy/stone extraction Meds propofol per anesthesia Pre-op dx choledocholithiasis Post op dx choledocholithiasis s/p extraction multiple stones Plan am labs advance diet if no post-ercp pancreatitis JUANA BLACKMON MD Jan 17, 2019 13:27
[2019-01-17] MEDS ORDERED: ONDANSETRON PF 4 MG/2 ML VIAL. IV ONE (14:30)
--- NOTE | 2019-01-17 14:31 | NUR ---
Rec'd from Outpatient Therapy s/p ERCP, alert/oriented
[2019-01-17] MEDS: cefTRIAXone IV Push 1 GM VIAL. IVP SCH (19:38)
[2019-01-18 03:12] VITALS: BP 97/57
[2019-01-18] MEDS: POTASSIUM CL 40MEQ IN 0.9%NACL 1,000 ML IV SCH (05:52)
[2019-01-18] MEDS: fentaNYL PF VIAL 100 MCG/2 ML VIAL IV PRN (06:08)
[2019-01-18 07:00] VITALS: BP 94/60
[2019-01-18] MEDS ORDERED: oxyCODONE/APAP 5/325 1 TAB TABLET PO PRN (08:15)
--- NOTE | 2019-01-18 08:42 | PDOC ---
GARRICK BROWN FITNESS SUPERVISOR 01/18/19 0842: SURGICAL PROGRESS NOTE Subjective pain improved no n/v Vital Signs Vital Signs Date Time Temp Pulse Resp B/P (MAP) Pulse Ox O2 Delivery O2 Flow Rate FiO2 01/18/19 07:15 Room Air 01/18/19 07:00 98.5 61 18 94/60 (71) 98 98.5 01/18/19 06:08 1.0 I&O Intake and Output 01/18/19 06:59 Intake Total 1380 ml Output Total 80 ml Balance 1300 ml Intake Oral 480 ml IV Total 900 ml Drainage Total 80 ml # Voids 4 General: Alert, Oriented X3, Cooperative, No acute distress Abdomen: Soft, Other (lap sites c/d/i, no erythema, kelby serous ) Labs Laboratory Tests Test 01/17/19 06:46 White Blood Count 4.7 x10^3/uL (4.0-11.0) Red Blood Count 3.93 x10^6/uL (3.50-5.40) Hemoglobin 10.8 g/dL (12.0-15.5) Hematocrit 32.9 % (36.0-47.0) Mean Corpuscular Volume 84 fL (79-100) Mean Corpuscular Hemoglobin 27 pg (25-35) Mean Corpuscular Hemoglobin Concent 33 g/dL (31-37) Red Cell Distribution Width 14.5 % (11.5-14.5) Platelet Count 203 x10^3/uL (140-400) Prothrombin Time 14.7 SEC (11.7-14.0) Prothromb Time International Ratio 1.2 (0.8-1.1) Sodium Level 142 mmol/L (136-145) Potassium Level 3.3 mmol/L (3.5-5.1) Chloride Level 106 mmol/L (98-107) Carbon Dioxide Level 25 mmol/L (21-32) Anion Gap 11 (6-14) Blood Urea Nitrogen 3 mg/dL (7-20) Creatinine 0.5 mg/dL (0.6-1.0) Estimated GFR (Cockcroft-Gault) 154.3 BUN/Creatinine Ratio 6 (6-20) Glucose Level 87 mg/dL (70-99) Calcium Level 8.0 mg/dL (8.5-10.1) Total Bilirubin 0.4 mg/dL (0.2-1.0) Aspartate Amino Transf (AST/SGOT) 55 U/L (15-37) Alanine Aminotransferase (ALT/SGPT) 303 U/L (14-59) Alkaline Phosphatase 232 U/L (46-116) Total Protein 5.8 g/dL (6.4-8.2) Albumin 2.9 g/dL (3.4-5.0) Albumin/Globulin Ratio 1.0 (1.0-1.7) Assessment/Plan s/p lap tamra ercp advance diet per GI can dc home when ok with them, remove drain prior to discharge FU 2 weeks script on chart JUANA BATES MD 01/18/19 1249: SURGICAL PROGRESS NOTE Assessment/Plan Agree with above GARRICK BROWN FITNESS SUPERVISOR Jan 18, 2019 08:42 JUANA BATES MD Jan 18, 2019 12:49
[2019-01-18 08:45] LABS: HEMATOCRIT 36.5 % (36.0-47.0); RED BLOOD COUNT 4.37 x10^6/uL (3.50-5.40); RED CELL DISTRIBUTION WIDTH 14.6 % (11.5-14.5); WHITE BLOOD COUNT 5.3 x10^3/uL (4.0-11.0)
[2019-01-18 09:00] LABS: ALBUMIN 3.3 g/dL (3.4-5.0); CALCIUM 8.6 mg/dL (8.5-10.1); CREATININE 0.5 mg/dL (0.6-1.0); GFR 154.3; POTASSIUM 3.6 mmol/L (3.5-5.1); TOTAL BILIRUBIN 0.5 mg/dL (0.2-1.0); TOTAL PROTEIN 6.7 g/dL (6.4-8.2)
--- NOTE | 2019-01-18 09:13 | RAD ---
Examination: ERCP BILIARY/PANCREATIC DUCT History: Choledocholithiasis Comparison/Correlation: None Findings: Fluoroscopy was utilized for 1 minute 30 seconds. 2 images provided. Contrast is noted within the common duct and intrahepatic biliary tree. Filling defects within the common hepatic duct noted. Filling defect within the very distal common bile duct also seen. Correlation with procedure history recommended. No biliary stricture identified on images provided. Cholecystectomy evident. Pancreatic duct is not identified to opacify with contrast. Impression: Images acquired for ERCP exam. Electronically signed by: Khanh Haney MD (01/18/2019 9:11 AM) [id number]
--- NOTE | 2019-01-18 10:07 | PATHOLOGY ---
[facility] Accession Number: [id number] . 01 Material submitted: . gallbladder - GALLBLADDER WITH CONTENTS . 01 Clinical history: . Cholecystitis . 02 Diagnosis: Gallbladder, laparoscopic cholecystectomy: - Cholelithiasis. - Chronic cholecystitis. ([facility] 01/18/2019) P/01/18/2019 . 02 Comment: There is no evidence of malignancy. ([facility] 01/18/2019) . 02 Electronically signed: . Saman Alexander MD, Pathologist NPI- [id number] . 01 Gross description: . The specimen is received in formalin labeled "Edis, Nilsa, gallbladder with contents" and consists of a previously opened pink-dubon gallbladder measuring 8.5 cm in length and up to 2.8 cm in diameter. The margin is inked black. Present at the bottom of the container are multiple yellow-green calculi measuring between 0.1 and 0.5 cm. The mucosa is green-brown with yellow stippling and an average wall thickness of 0.1 cm. No masses are identified. Retirement Plan Counselor sections are submitted in A1. ([facility]Y; 01/17/2019) SYU/SYU . 02 Pathologist provided ICD-10: K80.10 . 02 CPT . 249639 Specimen Comment: A courtesy copy of this report has been sent to Specimen Comment: [phone], . Specimen Comment: Report sent to / DR ADRIAN Performed at: 01 [facility] [address], [place], [place] [id number] MD Avila Ley MD Phone: [phone] Performed at: 02 [facility] [address] [place], [place] [id number] MD Saman Alexander MD Phone: [phone]
[2019-01-18 10:41] VITALS: BP 93/60
--- NOTE | 2019-01-18 10:52 | PN ---
DATE: 01/18/2019 SUBJECTIVE: The patient is resting slightly propped up in bed, in no apparent distress. Awake, alert. On questioning her, denied any complaint, in particular denied any abdominal pain. Denied any nausea or vomiting. She continued to be on a clear liquid diet. She apparently underwent ERCP with sphincterotomy as well as an extraction, multiple stones. PHYSICAL EXAMINATION: GENERAL: When I examined her, she looked well and was clearly in no apparent respiratory distress. No pallor, jaundice, cyanosis, or thyromegaly. No jugular venous distension. No limb edema. VITAL SIGNS: Her heart rate was 61, blood pressure was 94/60, temperature was 98.5, respiratory rate was 18 and oxygen saturation was 98%. HEAD, EYES, EARS, NOSE AND THROAT: Normocephalic, atraumatic. NECK: Supple. HEART: Showed normal first and second heart sounds. No gallop, rub or murmur. CHEST: Clear to auscultation. No crepitation or rhonchi. ABDOMEN: Distended, soft, nontender. NEUROLOGIC: She was awake, alert, responding appropriately. All cranial nerves intact. She moves extremities without difficulty. She ambulates without assistance or assistive devices. Her intake was 1500, no output was recorded. LABORATORY DATA: Today's lab is still pending at the time of this dictation. ASSESSMENT AND PLAN: 1. Acute cholecystitis, status post laparoscopic cholecystectomy. 2. Choledocholithiasis, status post ERCP, sphincterotomy and extraction of multiple stones. Once the lab works have become available and she has no evidence of ERCP pancreatitis, her diet can be advanced. BRYAN ADRIAN MD DR: VAL/lorenzo JOB#: [id number] / [id number]
--- NOTE | 2019-01-18 11:40 | PDOC ---
Subjective: Subjective: Stable discomfort around drain. Hungry. Objective: Vital Signs: Vital Signs Date Time Temp Pulse Resp B/P (MAP) Pulse Ox O2 Delivery O2 Flow Rate FiO2 01/18/19 10:41 98.7 71 16 93/60 (71) 95 Room Air 98.7 01/18/19 06:08 1.0 Labs: Laboratory Tests Test 01/18/19 07:30 White Blood Count 5.3 x10^3/uL Red Blood Count 4.37 x10^6/uL Hemoglobin 12.0 g/dL Hematocrit 36.5 % Mean Corpuscular Volume 84 fL Mean Corpuscular Hemoglobin 28 pg Mean Corpuscular Hemoglobin Concent 33 g/dL Red Cell Distribution Width 14.6 % Platelet Count 222 x10^3/uL Sodium Level 140 mmol/L Potassium Level 3.6 mmol/L Chloride Level 104 mmol/L Carbon Dioxide Level 26 mmol/L Anion Gap 10 Blood Urea Nitrogen 3 mg/dL Creatinine 0.5 mg/dL Estimated GFR (Cockcroft-Gault) 154.3 BUN/Creatinine Ratio 6 Glucose Level 87 mg/dL Calcium Level 8.6 mg/dL Total Bilirubin 0.5 mg/dL Aspartate Amino Transf (AST/SGOT) 29 U/L Alanine Aminotransferase (ALT/SGPT) 241 U/L Alkaline Phosphatase 225 U/L Total Protein 6.7 g/dL Albumin 3.3 g/dL Albumin/Globulin Ratio 1.0 Lipase 153 U/L Imaging: ERCP choledocholithiasis s/p extraction multiple stones PE: GEN: NAD LUNGS: CTAB HEART: RRR ABD: soft, tenderness around drain NEURO/PSYCH: A & O �3 A/P: Choledocholithiasis s/p cholecystectomy and ERCP Elevated LFTs - better -- ADAT, DC per primary. JOSELUIS JOHNSON Jan 18, 2019 11:40
[2019-01-18 15:00] VITALS: BP 94/61
--- NOTE | 2019-01-18 15:30 | NUR ---
Pt. discharged to home with Rx, verbalized understanding of discharge instructions. Abd [facility] CDI.
== END 2019-01-18 15:30 | disposition home or self-care (01) | DRG 418 ==
LOC: 4 NORTH 23:00
PROVIDERS: ADMIT Internal Medicine; ATTEND Internal Medicine
PROC: BF101ZZ Fluoroscopy of Bile Ducts using Low Osmolar Contrast (ICD-10-PCS; 2019-01-15)
PROC: 0FT44ZZ Resection of Gallbladder, Percutaneous Endoscopic Approach (ICD-10-PCS; principal; 2019-01-15 12:45)
PROC: 0FC98ZZ Extirpation of Matter from Common Bile Duct, Via Natural or Artificial Opening Endoscopic (ICD-10-PCS; 2019-01-17)
PROC: BF101ZZ Fluoroscopy of Bile Ducts using Low Osmolar Contrast (ICD-10-PCS; 2019-01-17)
DX: K80.62 Calculus of gallbladder and bile duct with acute cholecystitis without obstruction (principal); N39.0 Urinary tract infection, site not specified; E87.6 Hypokalemia; K21.9 Gastro-esophageal reflux disease without esophagitis; M51.26 Other intervertebral disc displacement, lumbar region; Z80.0 Family history of malignant neoplasm of digestive organs; Z83.3 Family history of diabetes mellitus; Z79.899 Other long term (current) drug therapy; Z87.440 Personal history of urinary (tract) infections
CPT/HCPCS: 36415; 43262; 43264; 74300; 74330; 80053; 83690; 85027; 85610; 88304; A7015; C1726; C1757; J0696; J0780; J1100; J1885; J2001; J2250; J2370; J2405; J2704; J2710; J3010; J3480; J3490; J7030; J7120; Q9967